=== PATIENT | female | born 1990 | race Caucasian/White ===

== ENCOUNTER → 2016-05-26 | Outpatient (CLI) | payer OTHER ==
[~2016-05-26] MED LIST: AZO-CRANBERRY450 MG PO; IBU800 M1 PO; PERCOCET 325 MG1 TA2 PO; PRENATAL; VITAMIN D31000 IU PO; ZANTAC 150MG T150 MG PO
== END ==
LOC: LAC 14:00
DX: Z39.1 Encounter for care and examination of lactating mother (principal); Z71.89 Other specified counseling

== ENCOUNTER → 2016-06-16 | Outpatient (CLI) | payer OTHER | LOC: OLC 13:11 | DX: Z39.1 Encounter for care and examination of lactating mother (principal); Z71.89 Other specified counseling ==

== ENCOUNTER → 2016-06-24 | Outpatient (CLI) | payer OTHER | LOC: LAC 12:53 | DX: Z39.1 Encounter for care and examination of lactating mother (principal); Z71.89 Other specified counseling ==

== ENCOUNTER 2018-04-03 16:10 | Inpatient (IN) | payer OTHER ==
[~2018-04-03] VITALS: Ht 154.9 cm; Wt 64.5 kg
[2018-04-03] VITALS (17 sets, daily range): BP systolic 119–194; BP diastolic 6–102; PULSE 60–114; TEMP 97.6–98.3
[2018-04-03] MEDS ORDERED: TUMS500 MG (16:20)
[2018-04-03] MEDS ORDERED: ZANTAC 150MG T150 MG (16:20)
[2018-04-03] MEDS ORDERED: IBU600 MG PO (17:21)
[2018-04-03 19:16] LABS: BASO % 0.1 % (0.0-2.0); EOS % 0.1 % (0-4.0); GRAN # 14.7 (1.4-6.5); GRAN % 88.1 % (42.2-75.2); HEMATOCRIT 37.7 % (37.0-47.0); HEMOGLOBIN 13.5 g/dl (12.5-16.0); LYMPH # 1.2 (1.2-3.4); LYMPH % 7.1 % (20.0-51.0); MEAN CELL VOLUME 84 fl (80.0-100.0); MEAN CORPUSCULAR HEMOGLOBIN 30 pg (27.0-31.0); MEAN CORPUSCULAR HGB CONC 36 g/dl (33.0-37.0); MEAN PLATELET VOLUME 12.7 fl (7.4-10.4); MONO # 0.6 (0.1-0.6); MONO % 3.8 % (1.7-9.3); PLATELET COUNT 158 K/mm3 (130-400); RED BLOOD COUNT 4.48 M/mm3 (4.10-5.30); REDCELL DISTRIBUTION WIDTH-CV 12.4 % (11.5-14.5)
[2018-04-03 19:29] LABS: ALBUMIN 3.4 gm/dL (3.5-5.0); BILIRUBIN,TOTAL 0.3 mg/dL (0.0-1.0); CALCIUM 8.7 mg/dL (8.4-10.2); CREATININE, serum 0.65 mg/dL (0.52-1.25); POTASSIUM 3.7 mmol/L (3.4-5.0); TOTAL PROTEIN 6.4 gm/dL (6.4-8.2)
[2018-04-04 02:30] VITALS: BP 122/75; PULSE 68; TEMP 98
[2018-04-04 08:00] VITALS: BP 128/73; PULSE 82; TEMP 98.1
[2018-04-04 16:40] VITALS: BP 132/78; PULSE 65; TEMP 97.7
== END 2018-04-04 18:50 | disposition home or self-care (01) | DRG 807 ==
LOC: LDRO 16:10 → LDR 16:19 → OB 21:00
PROVIDERS: Obstetrics & Gynecology
PROC: 10E0XZZ Delivery of Products of Conception, External Approach (ICD-10-PCS; principal; 2018-04-03)
PROC: 0KQM0ZZ Repair Perineum Muscle, Open Approach (ICD-10-PCS; 2018-04-03)
PROC: 0U9LXZZ Drainage of Vestibular Gland, External Approach (ICD-10-PCS; 2018-04-03)
DX: O70.1 Second degree perineal laceration during delivery (principal); Z37.0 Single live birth; Z3A.38 38 weeks gestation of pregnancy; N75.0 Cyst of Bartholin's gland; O34.83 Maternal care for other abnormalities of pelvic organs, third trimester; N94.89 Other specified conditions associated with female genital organs and menstrual cycle
CPT/HCPCS: J2270; J2590; J7120

== ENCOUNTER 2019-10-10 08:31 | Day surgery (SDC) | payer OTHER ==
[~2019-10-10] VITALS: Ht 154.9 cm; Wt 47.1 kg
[~2019-10-10 08:31] MED LIST changes: +IBU600 MG PO; +TUMS500 MG; +ZANTAC 150MG T150 MG
[2019-10-10 08:50] VITALS: BP 117/65; PULSE 82; TEMP 98.3
[2019-10-10] MEDS ORDERED: CARAFATE 1GM1 G PO (08:50)
[2019-10-10] MEDS ORDERED: PROTONIX 40MG T40 MG PO (08:50)
[2019-10-10 11:20] VITALS: BP 108/67; PULSE 107; TEMP 98.3
--- NOTE | 2019-10-10 11:20 | NUR ---
Pt arrived back to room via cart with Endo RN. Pt ambulated to chair easily with 2 SBA. Received report from Endo RN, Ronel. Upon arrival, pt's HR up 107-115, and per Endo RN, was "a little tachy" towards the end of the procedure and was in sinus rhythm. Pt denies dizziness at this time. IV fluid opened to increase adminstration to help with tachy-ness. Water brought per pt's request and pt denies nausea or pain at this time. Call light within reach. BP WNL. O2 sats adequate on room air.
[2019-10-10 11:30] VITALS: BP 108/70; PULSE 84
--- NOTE | 2019-10-10 11:30 | NUR ---
Pt sitting comfortably in chair and successfully finished water with no c/o nausea or pain. HR back down WNL and other VSS and WNL. Call light within reach. Dr. Fuller reviewing procedure with pt and spouse.
[2019-10-10 11:45] VITALS: BP 101/69; PULSE 98
--- NOTE | 2019-10-10 11:45 | NUR ---
Pt states that she is ready to go home, and she meets criteria for discharge. VSS and WNL. Reviewed discharge information with pt and spouse including educational packet and symptoms to watch. Pt agrees with plan and expresses understanding.
== END 2019-10-10 12:05 | disposition home or self-care (01) ==
LOC: SDCO 08:31
DX: K21.9 Gastro-esophageal reflux disease without esophagitis (principal); Z83.79 Family history of other diseases of the digestive system; Z79.899 Other long term (current) drug therapy
CPT/HCPCS: J2250; J3010; J7030

== ENCOUNTER → 2019-11-14 | Outpatient (CLI) | payer OTHER ==
[~2019-11-14] MED LIST changes: +CARAFATE 1GM1 G PO; +PROTONIX 40MG T40 MG PO
== END ==
LOC: COL.RAD 11-08 07:30
DX: M94.0 Chondrocostal junction syndrome [Tietze] (principal); R10.819 Abdominal tenderness, unspecified site; R10.11 Right upper quadrant pain

== ENCOUNTER 2021-06-21 22:54 | Outpatient (CLI) | payer BC ==
[~2021-06-21] VITALS: Ht 152.4 cm; Wt 62.3 kg
--- NOTE | 2021-06-21 23:00 | NUR ---
2300- PT PRESENTS TO LDR COMPLAINING OF VAGINAL BLEEDING, AMBULATORY TO ROOM LR6, CHANGED INTO GOWN. 230- EFM X2 APPLIED. PT REPORTS LARGE GUSH OF BLOOD AFTER HAVING INTERCOURSE. MAXI PAD 60% SATURATED AND WAS ONLY ON 20-40 MIN. PT REPORTS FEELING PELVIC PRESSURE, INTERMITTENT BACK PAIN TODAY, BUT NOT FEELING CONTRACTIONS. PT REPORTS FEELING BABY MOVE NORMALLY. PLAN OF CARE DISCUSSED WITH PT. QUESTIONS AND REASSURANCE PROVIDED. 2320- DR ROLES CALLED AND UPDATED ON PT HISTORY, PRESENTING COMPLAINT, BRIEF STRIP INTERPRETATION, MAXI PAD BLOOD AMOUNT, TACHYCARDIA, VS. DR STATES SHE WILL COME TO BEDSIDE AND EVALUATE PT. PT UPDATED. 2336- DR ROLES AT BEDSIDE FOR EVALUATION. SPECULUM EXAM PER DR ROLES. EVACUATION OF VAGINAL CLOTS, SVE WITH BALLOTABLE CERVIX. VERBAL ORDERS RECEIVED FOR IV AND LABS. 2345- IV START TO LEFT HAND WITH 20G, UNABLE TO DRAW LABWORK OF START. LR INFUSING.
[2021-06-21 23:30] VITALS: BP 129/72; PULSE 120; TEMP 98.4
[2021-06-22] VITALS (18 sets, daily range): BP systolic 98–121; BP diastolic 52–63; PULSE 97–118; TEMP 97.7–98.2
--- NOTE | 2021-06-22 | NUR ---
9255 Roles at bedside, performs bedside sono, plan of care reviewed with patient and spouse.
[2021-06-22] MEDS ORDERED: ASPIRIN 81M81 MG/TA2 PO (00:07)
[2021-06-22] MEDS ORDERED: PRENATAL MVI (00:08)
[2021-06-22] MEDS ORDERED: PROTONIX 40MG T40 MG PO (00:08)
[2021-06-22 00:20] LABS: MEAN CELL VOLUME 92 fl (80.0-100.0); MEAN CORPUSCULAR HGB CONC 33 g/dl (33.0-37.0); MEAN PLATELET VOLUME 11.8 fl (7.4-10.4); PLATELET COUNT 192 K/mm3 (130-400); RED BLOOD COUNT 3.18 M/mm3 (4.10-5.30); REDCELL DISTRIBUTION WIDTH-CV 12.6 % (11.5-14.5)
[2021-06-22 00:21] LABS: HEMATOCRIT 29.2 % (37.0-47.0); HEMOGLOBIN 9.7 g/dl (12.5-16.0); MEAN CORPUSCULAR HEMOGLOBIN 31 pg (27-31)
[2021-06-22 00:46] LABS: BAND 9 % (0-10); EOSINOPHIL 1 % (0-4); LYMPHOCYTE 13 % (20.0-51.0); METAMYELOCYTE 1 % (0-0); NEUTROPHILS 68 % (42.0-75.2)
[2021-06-22 00:47] LABS: HYPOCHROMIA 1+
--- NOTE | 2021-06-22 02:00 | NUR ---
5450-3930 contractions per toco q3-6 minutes apart. Patient resting in bed, reports feeling some lower abdominal tightening and mild pressure in her vagina that coorelates with these. She denies feeling any discomfort or pain. Patient encouraged to call with any changes or vaginal bleeding.
--- NOTE | 2021-06-22 02:20 | NUR ---
Patient up to commode to void, light spotting noted on toilet paper when she wipes, no active bleeding noted.
--- NOTE | 2021-06-22 06:00 | NUR ---
Patient rest in bed, denies discomfort, pain, or contractions. No vaginal bleeding noted.
--- NOTE | 2021-06-22 09:43 | NUR ---
Roles to pt bedside. Reviews plan of care with patient and spouse who verbalize understanding.
--- NOTE | 2021-06-22 10:45 | NUR ---
104Kayla- Roles at L&D desk and reviews strips, orders to remove EFM. EFM off. 1055- Roles to pt bedside. Reviews plan of care with pt and spouse who verbalize understanding.
[2021-06-22 10:47] LABS: HEMATOCRIT 30.2 % (37.0-47.0); HEMOGLOBIN 9.9 g/dl (12.5-16.0)
--- NOTE | 2021-06-22 19:00 | NUR ---
1900-Patient reports some mild cramping towards lower abdoman. EFM x2 placed for NST at this time. Patient instructed to drink some water. Plan of care discussed. Patient verbalizes understanding. 1929-NST completed at this time. EFM x2 removed. Patient reports cramping has subsided. No additional pain at this time. Plan of care discussed.
== END 2021-06-22 22:05 | disposition home or self-care (01) ==
LOC: LDRO 22:54
PROVIDERS: Obstetrics & Gynecology
DX: O26.853 Spotting complicating pregnancy, third trimester (principal); Z3A.28 28 weeks gestation of pregnancy
CPT/HCPCS: J0702; J7120

== ENCOUNTER 2021-09-06 13:09 | Inpatient (IN) | payer BC ==
[~2021-09-06] VITALS: Ht 152.4 cm; Wt 70.9 kg
[~2021-09-06 13:09] MED LIST changes: +ASPIRIN 81M81 MG/TA2 PO; +PRENATAL MVI
[2021-09-07] MEDS ORDERED: FERROUSAL325 MG PO (20:00)
[2021-09-10] VITALS (34 sets, daily range): BP systolic 97–129; BP diastolic 52–76; PULSE 78–120; TEMP 97.9–98.5
--- NOTE | 2021-09-10 06:30 | NUR ---
0630 Pt arrived on unit ambulatory with Fabián. Pt denies pain, bleeding or LOF. Reports movement and occational contractions. Pt oriented to the room. POC discussed and pt states understanding. Ali Chuk and EFM placed. VS obtained.
[2021-09-10] MEDS ORDERED: VTAMINC250TA (07:13)
[2021-09-10 07:54] LABS: HEMOGLOBIN 11.8 g/dl (12.5-16.0); MEAN CELL VOLUME 92 fl (80.0-100.0); MEAN CORPUSCULAR HEMOGLOBIN 31 pg (27-31); MEAN CORPUSCULAR HGB CONC 34 g/dl (33.0-37.0); PLATELET COUNT 150 K/mm3 (130-400); RED BLOOD COUNT 3.81 M/mm3 (4.10-5.30); REDCELL DISTRIBUTION WIDTH-CV 13.5 % (11.5-14.5)
[2021-09-10 08:14] LABS: BAND 4 % (0-10); LYMPHOCYTE 13 % (20.0-51.0); MYELOCYTE 2 % (0-0); NEUTROPHILS 74 % (42.0-75.2); PLATELET ESTIMATE NORMAL (NORMAL)
--- NOTE | 2021-09-10 11:00 | NUR ---
1100 Jeovany. LUIS KAUR AT THE BEDSIDE TO PLACE EPIDURAL. TIME OUT DONE. PT SITTING ON EDGE OF BED SPO2 MONITORING STARTED. 1108 TEST DOSE GIVEN BY LUIS. SEE RECORD FOR DETAILS. 1114 ASSISTED PT BACK TO SUPINE POSITION. MONITORS ADJUSTED.
--- NOTE | 2021-09-10 15:59 | NUR ---
1405 DR. KURTZ NORIFIED OF SVE COMPLETE AT THIS TIME. 1413 BUTLER DISCONTINUED WITH 260ML OF CLEAR YELLOW URINE. 1418 DR. KURTZ AT THE BEDSIDE. PT PLACED IN FOOT PEDDLES AT THIS TIME. 1422 PUSHING STARTED. 1430 UNABLE TO DETERMINE FHT BASELINE DUE TO PUSHING. 1440 VIABLE FEMALE WITH SHOULDER DYSTOCIA MANEUVERS DONE. PATIENT WITH 2ND DEGREE MIDLINE LACERATION WITH REPAIR. PLACED ON MOTHERS ABDOMEN, CORDS CLAMPED AND CUT CARE OF THE GIVEN TO NURSERY RN. 1445 OF INTACT PLACENTA. CORD BLOOD DRAWN AND ARTERIAL BLOOD GASSES SENT TO LAB. PITOCIN STARTED AT 333ML/HR PER ORDERS AND PROTOCOL. FUNDUS FIRM AT UMBILICUS AND BLEEDING WNL.
--- NOTE | 2021-09-10 17:51 | NUR ---
1745 PT UP TO THE BATHROOM TO VOID. VOIDED 500ML. AMBULATING WITHOUT DIFFICULTY. NO DIZZINESS AND MINIMAL WEAKNESS IN HER LEGS. ASSISTED WITH PERICARE. PT AMBULATED TO ROOM 208 WITH BABY AND FOB. POC REVIEWED. CALL LIGHT WITHIN REACH.
[2021-09-11 02:15] VITALS: BP 107/69; PULSE 105; TEMP 98.3
[2021-09-11 07:54] VITALS: BP 122/72; PULSE 103; TEMP 98.1
[2021-09-11] MEDS ORDERED: IBU800 M1 PO (09:48)
--- NOTE | 2021-09-11 09:58 | NUR ---
Initial visit; Patient thanked Retail Performance Specialist for offering congratulations and God's blessigs for the of her daughter. Retail Performance Specialist thanked family for choosing [facility].
[2021-09-11 12:30] VITALS: BP 112/59; PULSE 96; TEMP 98.1
== END 2021-09-11 18:00 | disposition home or self-care (01) | DRG 806 ==
LOC: LDR 13:09 → OB 09-10 06:17 → LDR 09-10 11:41 → OB 09-10 17:49
PROVIDERS: ADMIT Student in an Organized Health Care Education/Training Program
PROC: 10E0XZZ Delivery of Products of Conception, External Approach (ICD-10-PCS; principal; 2021-09-10)
PROC: 0KQM0ZZ Repair Perineum Muscle, Open Approach (ICD-10-PCS; 2021-09-10)
PROC: 10907ZC Drainage of Amniotic Fluid, Therapeutic from Products of Conception, Via Natural or Artificial Opening (ICD-10-PCS; 2021-09-10)
PROC: 3E033VJ Introduction of Other Hormone into Peripheral Vein, Percutaneous Approach (ICD-10-PCS; 2021-09-10)
DX: O99.02 Anemia complicating childbirth (principal); O72.1 Other immediate postpartum hemorrhage; Z37.0 Single live birth; D64.9 Anemia, unspecified; O76 Abnormality in fetal heart rate and rhythm complicating labor and delivery; O66.0 Obstructed labor due to shoulder dystocia; O70.1 Second degree perineal laceration during delivery; Z3A.38 38 weeks gestation of pregnancy
CPT/HCPCS: J2210; J2590; J7120

== ENCOUNTER 2021-09-07 19:05 | Outpatient (CLI) | payer BC ==
[~2021-09-07] VITALS: Ht 152.4 cm; Wt 70.0 kg
--- NOTE | 2021-09-07 19:15 | NUR ---
G3L2 at 39 weeks and 1 day arrivs to unit with complaint of decreased movement and passing small clots. Dr. Ac called charge nurse prior to patients arrival and gave orders to obtain NST and perform SVE. Pt denies feeling strong contractions, denies LOF. Denies headaches, blurr vision, or RUQ pain. Clean gown on. Pt oriented to room, call light within reach, bed in low and locked position. US and toco explained and applied. Vitals obtained. Admission assessment started. SVE /-3, ballotable, membranes intact. 1930 - Much movement audible and patient verbalizes feeling good movement.
[2021-09-07 19:35] VITALS: BP 126/71; PULSE 101; TEMP 98.4
[2021-09-07] MEDS ORDERED: FERROUSAL325 MG PO (20:00)
--- NOTE | 2021-09-07 20:05 | NUR ---
Discharge instructions reviewed with patient and spouse, verbalized understanding. Pt seen ambulating off unit with spouse and belongings.
== END 2021-09-07 19:55 | disposition home or self-care (01) ==
LOC: LDRO 19:05
DX: O36.8130 Decreased fetal movements, third trimester, not applicable or unspecified (principal); Z3A.39 39 weeks gestation of pregnancy